=== PATIENT | female | born 1970 | race Caucasian/White ===

== ENCOUNTER 2018-05-24 02:27 | Emergency (ER) | payer OTHER ==
[~2018-05-24] VITALS: Ht 165.1 cm; Wt 131.8 kg
[2018-05-24] MEDS ORDERED: LOSA50TA88 (02:30)
[2018-05-24] MEDS ORDERED: HYDR25TAB (02:30)
[2018-05-24] MEDS ORDERED: ONDANSETRON 4MG/2ML VIAL (J2405) IV ONE (03:15)
[2018-05-24] MEDS ORDERED: KETOROLAC 30 MG/ML VIAL (J1885) IV ONE ×2 (03:15→05:30)
[2018-05-24 03:30] LABS: BASO # 0.1 10^3/uL (0.0-0.2); BASO % 0.5 % (0.0-1.0); EOS % 0.4 % (0.0-3.0); HEMATOCRIT 38.7 % (36.0-47.0); HEMOGLOBIN 12.8 g/dl (12.0-15.5); LYMPH # 2.1 10^3/uL (1.5-4.5); LYMPH % 20.8 % (24.0-44.0); MEAN CORPUSCULAR HEMOGLOBIN 29.9 pg (27.0-33.0); MEAN CORPUSCULAR HGB CONC 33.1 g/dl (32.0-36.5); MEAN CORPUSCULAR VOLUME 90.4 fl (80.0-96.0); MONO # 0.6 10^3/uL (0.0-0.8); MONO % 6.3 % (0.0-5.0); NEUTROPHILS # 7.1 10^3/uL (1.8-7.7); NEUTROPHILS % 71.5 % (36.0-66.0); PLATELET COUNT, AUTOMATED 403 10^3/uL (150-450); RED BLOOD COUNT 4.28 10^6/uL (4.00-5.40); WHITE BLOOD COUNT 9.9 10^3/uL (4.0-10.0)
[2018-05-24 03:43] LABS: HCG, SERUM QUALITATIVE NEGATIVE (NEGATIVE)
[2018-05-24 03:52] LABS: ALBUMIN 3.7 GM/DL (3.2-5.2); ALT/SGPT 21 U/L (12-78); BILIRUBIN,DIRECT < 0.1 MG/DL (0.0-0.2); BILIRUBIN,TOTAL 0.2 MG/DL (0.2-1.0); BLOOD UREA NITROGEN 18 MG/DL (7-18); CALCIUM LEVEL 8.5 MG/DL (8.5-10.1); CARBON DIOXIDE LEVEL 30 MEQ/L (21-32); CHLORIDE LEVEL 104 MEQ/L (98-107); CREATININE FOR GFR 0.86 MG/DL (0.55-1.30); GLOMERULAR FILTRATION RATE > 60.0 (>58); GLUCOSE, FASTING 150 MG/DL (70-100); LIPASE 118 U/L (73-393); POTASSIUM SERUM 3.5 MEQ/L (3.5-5.1); SODIUM LEVEL 143 MEQ/L (136-145); TOTAL PROTEIN 6.9 GM/DL (6.4-8.2)
--- NOTE | 2018-05-24 05:13 | REPVR ---
EXAM: CT Abdomen and Pelvis Without Contrast EXAM DATE/TIME: 05/24/2018 3:58 AM CLINICAL HISTORY: 48 years old, female; Pain; Abdominal pain; Flank; Right; Additional info: Right renal colic TECHNIQUE: Axial computed tomography images of the abdomen and pelvis without contrast. All CT scans at this facility use at least one of these dose optimization techniques: automated exposure control; mA and/or kV adjustment per patient size (includes targeted exams where dose is matched to clinical indication); or iterative reconstruction. Coronal and sagittal reformatted images were created and reviewed. COMPARISON: No relevant prior studies available. FINDINGS: Lower thorax: Mild bibasilar atelectasis. ABDOMEN: Liver: Normal. No mass. Gallbladder and bile ducts: Normal. No calcified stones. No ductal dilation. Pancreas: Normal. No ductal dilation. Spleen: Normal. No splenomegaly. Adrenals: Normal. No mass. Kidneys and ureters: Mild to moderate right sided hydroureteronephrosis with perinephric and periureteral stranding and trace fluid secondary to 1-2 mm obstructing stone in the distal right ureter just proximal to the right ureterovesical junction Multiple nonobstructing stones in bilateral kidneys measuring up to 2 mm. Cyst in the upper pole of the left kidney measuring 5 x 22 mm. Stomach and bowel: Normal. No obstruction. No mucosal thickening. Appendix: Normal appendix. PELVIS: Bladder: Unremarkable as visualized. Reproductive: Prominent uterus. Possible cyst versus dominant follicle the left ovary measuring 13 x 16 mm. ABDOMEN and PELVIS: Intraperitoneal space: Normal. No free air. No significant fluid collection. Bones/joints: Degenerative changes. Soft tissues: Unremarkable. Vasculature: Mild atherosclerosis. Lymph nodes: Normal. No enlarged lymph nodes. IMPRESSION: with perinephric and periureteral stranding and trace fluid secondary to 1-2 mm obstructing stone in the distal right ureter just proximal to the right ureterovesical junction Multiple nonobstructing stones in bilateral kidneys measuring up to 2 mm. Electronically signed by: Edita Camara On 05/24/2018 05:13:31 AM
[2018-05-24] MEDS ORDERED: TAMSULOSIN 0.4 MG CAP PO ONE (05:30)
[2018-05-24 05:33] VITALS: BP 168/70
[2018-05-24] MEDS ORDERED: ONDA4TAB6 PO (06:03)
[2018-05-24] MEDS ORDERED: NORCOTAB PO (06:03)
[2018-05-24] MEDS ORDERED: FLOM0.4C39 PO (06:03)
[2018-05-24] MEDS ORDERED: NORCO 5/325MG TABLET (BULK FOR ED) PO ONE (06:15)
== END 2018-05-24 06:27 | disposition home or self-care (01) ==
LOC: M ED 02:27
DX: N20.1 Calculus of ureter (principal); Z87.42 Personal history of other diseases of the female genital tract; E66.01 Morbid (severe) obesity due to excess calories; Z68.42 Body mass index [BMI] 45.0-49.9, adult; I10 Essential (primary) hypertension; Z79.899 Other long term (current) drug therapy
CPT/HCPCS: 74176; 80048; 80076; 81001; 83690; 84703; 85025; 96374; 96375; 96376; 99284; J1885; J2405

== ENCOUNTER → 2022-05-13 | Outpatient (CLI) | payer BC, SELFPAY ==
[~2022-05-13] MED LIST: FLOM0.4C39 PO; HYDR-3490; HYDR-3715 PO; LOSA50TA28; ONDA4TAB6 PO
== END ==
LOC: M RAD 14:20
PROVIDERS: ATTEND Family Medicine
DX: Z12.2 Encounter for screening for malignant neoplasm of respiratory organs (principal); F17.210 Nicotine dependence, cigarettes, uncomplicated

== ENCOUNTER → 2023-06-15 | Outpatient (CLI) | payer BC | LOC: M RAD 10:54 | PROVIDERS: ATTEND Family Medicine | DX: Z12.2 Encounter for screening for malignant neoplasm of respiratory organs (principal); F17.210 Nicotine dependence, cigarettes, uncomplicated ==